=== PATIENT | female | born 1985 | race Caucasian/White ===

== ENCOUNTER 2016-11-08 08:58 | Inpatient (IN) | payer BC ==
[~2016-11-08] VITALS: Ht 167.6 cm; Wt 71.0 kg
[2016-11-08] MEDS ORDERED: OXYTOCIN 10 UNITS/ML, 1ML ONE (09:04)
[2016-11-08] MEDS ORDERED: OXYTOCIN 30U/ 0.9% NaCL 500ML 500 ML IV ONE (09:04)
[2016-11-08] MEDS ORDERED: NEWBORN KIT ONE (09:13)
[2016-11-08] MEDS ORDERED: LIDOCAINE 1%, 20ML ONE ×2 (09:13→09:57)
[2016-11-08] MEDS ORDERED: MISOPROSTOL 200 MCG TABLET ONE (09:13)
[2016-11-08 09:40] LABS: HEMOGLOBIN 13.9 g/dL (11.7-16.4)
[2016-11-08] MEDS ORDERED: MISOPROSTOL 200 MCG TABLET PR PRN (10:00)
[2016-11-08] MEDS ORDERED: OXYTOCIN 10 UNITS/ML, 1ML IM PRN (10:00)
[2016-11-08] MEDS ORDERED: METHYLERGONOVINE 0.2 MG/ML IM PRN (10:30)
[2016-11-08] MEDS ORDERED: HYDROcodone/APAP 5/325 TABLET PO PRN ×2 (10:30)
[2016-11-08] MEDS ORDERED: IBUPROFEN 600 MG TABLET ONE (10:34)
[2016-11-08] MEDS: IBUPROFEN 600 MG TABLET PO PRN ×3 (10:45→22:58)
[2016-11-08 12:00] VITALS: BP 124/77
[2016-11-08 16:40] VITALS: BP 123/80
[2016-11-08 18:42] LABS: HEMOGLOBIN 11.5 g/dL (11.7-16.4)
[2016-11-08] MEDS ORDERED: DIPH,PERTUSS(ACELL),TET VAC/PF NC IM-VACC ONE (20:37)
[2016-11-08 21:30] VITALS: BP 111/76
[2016-11-08] MEDS: DOCUSATE 100 MG CAPSULE PO PRN (22:58)
[2016-11-09 01:00] VITALS: BP 115/75
[2016-11-09] MEDS: IBUPROFEN 600 MG TABLET PO PRN ×2 (05:18→11:18)
[2016-11-09 07:24] VITALS: BP 112/70
[2016-11-09] MEDS ORDERED: PRENATAL VIT/IRON/FA 1 EACH TABLET PO SCH (09:00)
[2016-11-09] MEDS: DOCUSATE 100 MG CAPSULE PO PRN (09:43)
[2016-11-09] MEDS ORDERED: DOCU-30 PO (12:16)
[2016-11-09] MEDS ORDERED: IBUP-1222 PO (12:18)
== END 2016-11-09 17:50 | disposition home or self-care (01) | DRG 774 ==
LOC: LDOP 08:58 → LDIP 08:59 → 2NW 11:55
PROVIDERS: ADMIT Student in an Organized Health Care Education/Training Program; ATTEND Student in an Organized Health Care Education/Training Program
PROC: 10E0XZZ Delivery of Products of Conception, External Approach (ICD-10-PCS; principal; 2016-11-08)
PROC: 0KQM0ZZ Repair Perineum Muscle, Open Approach (ICD-10-PCS; 2016-11-08)
DX: O62.3 Precipitate labor (principal); O72.1 Other immediate postpartum hemorrhage; O70.1 Second degree perineal laceration during delivery; O77.0 Labor and delivery complicated by meconium in amniotic fluid; O34.83 Maternal care for other abnormalities of pelvic organs, third trimester; N83.209 Unspecified ovarian cyst, unspecified side; Z3A.38 38 weeks gestation of pregnancy; Z90.89 Acquired absence of other organs; Z37.0 Single live birth
CPT/HCPCS: 36415; 85025; 86850; 86900; 90715; J2590

== ENCOUNTER 2017-08-01 08:18 | Day surgery (SDC) | payer BC ==
[~2017-08-01] VITALS: Ht 167.6 cm; Wt 63.5 kg
[~2017-08-01 08:18] MED LIST: ASCO10004 PO; CHOL40002 PO; DOCU-131 PO; IBUP-1222 PO; MULT-224 PO
[2017-08-01 08:46] VITALS: BP 106/73
[2017-08-01 08:49] LABS: HCG UR LOT HCG7030192
[2017-08-01] MEDS ORDERED: LACTATED RINGERS 1,000 ML IV SCH (08:53)
[2017-08-01] MEDS ORDERED: LIDOCAINE 1%, 2ML ONE (08:55)
[2017-08-01] MEDS ORDERED: LIDOCAINE 1%, 2ML SQ PRN (09:00)
[2017-08-01] MEDS ORDERED: FENTANYL PF 100 MCG/2ML ONE ×3 (09:01→11:32)
[2017-08-01] MEDS ORDERED: MIDAZOLAM 1 MG/ML, 2ML ONE ×2 (09:01→09:49)
[2017-08-01] MEDS ORDERED: PROPOFOL 10 MG/ML, 20ML ONE ×2 (09:02→09:49)
[2017-08-01] MEDS ORDERED: ROCURONIUM 10 MG/ML,10ML ONE ×2 (09:03→09:49)
[2017-08-01] MEDS ORDERED: NEOSTIGMINE 1 MG/ML, 10ML ONE ×2 (09:03→09:49)
[2017-08-01] MEDS ORDERED: KETOROLAC 30 MG/1 ML ONE ×2 (09:04→09:49)
[2017-08-01] MEDS ORDERED: DEXAMETHASONE 4 MG/ML, 1ML ONE ×3 (09:04→09:49)
[2017-08-01] MEDS ORDERED: GLYCOPYRROLATE 0.4 MG/2 ML, 2ML ONE (09:04)
[2017-08-01] MEDS ORDERED: ONDANSETRON 2MG/ML, 2ML ONE ×2 (09:05→09:49)
[2017-08-01 09:17] LABS: HCG UR OBC PASS
[2017-08-01] MEDS ORDERED: BUPIVACAINE/PF 0.25% ONE (09:29)
[2017-08-01] MEDS ORDERED: FENTANYL PF 250 MCG/5ML ONE (09:49)
[2017-08-01] MEDS ORDERED: GLYCOPYRROLATE 0.2MG/1ML, 5ML ONE (09:49)
[2017-08-01] MEDS ORDERED: ACETAMINOPHEN 325 MG TABLET PO PRN (10:00)
[2017-08-01] MEDS ORDERED: OXYcodone 5 MG/5 ML ORAL.SOL UDC PO PRN (10:00)
[2017-08-01] MEDS ORDERED: HYDROmorphone 1 MG/ML, 1ML IV PRN (10:00)
[2017-08-01] MEDS ORDERED: PROMETHAZINE 25 MG/ML, 1ML IV PRN (10:00)
[2017-08-01] MEDS ORDERED: MEPERIDINE/PF 25MG/0.5ML IVPush PRN (10:00)
[2017-08-01] MEDS ORDERED: ONDANSETRON 2MG/ML, 2ML IVPush PRN (10:00)
[2017-08-01] MEDS ORDERED: BUPIVACAINE/PF 0.25% INFIL ONE (10:24)
[2017-08-01] MEDS ORDERED: ACETAMINOPHEN 650 MG/20.3 ML UDC ONE (11:32)
[2017-08-01] MEDS ORDERED: OXYcodone 5 MG/5 ML ORAL.SOL UDC ONE (11:32)
[2017-08-01] MEDS: FENTANYL PF 100 MCG/2ML IV PRN ×2 (11:38→11:49)
== END 2017-08-01 14:50 ==
LOC: OUT 08:18 → MERGE 10:00 → OUT 14:50
PROVIDERS: ATTEND Obstetrics & Gynecology
DX: D27.1 Benign neoplasm of left ovary (principal); I25.10 Atherosclerotic heart disease of native coronary artery without angina pectoris; E78.5 Hyperlipidemia, unspecified; I10 Essential (primary) hypertension; Z98.890 Other specified postprocedural states
CPT/HCPCS: 58661; 81025; 88305; J1100; J1885; J2250; J2405; J2704; J2710; J3010; J3490; J7120